=== PATIENT | male | born 1975 | race Caucasian/White ===

== ENCOUNTER 2019-06-10 09:48 | Emergency (ER) | payer OTHER ==
[~2019-06-10] VITALS: Ht 175.3 cm; Wt 85.4 kg
[2019-06-10] MEDS ORDERED: ONDANSETRON 2MG/ML, 2ML ONE (09:51)
[2019-06-10] MEDS ORDERED: SODIUM CHLORIDE FLUSH 10ML SYR IVF ONE (10:00)
[2019-06-10] MEDS ORDERED: MORPHINE SULFATE 4 MG/ML, 1ML IVPush PRN (10:00)
[2019-06-10] MEDS ORDERED: ONDANSETRON 2MG/ML, 2ML IVPush ONE (10:00)
[2019-06-10] MEDS ORDERED: synthroid PO (10:25)
--- NOTE | 2019-06-10 10:25 | NUR ---
pt came via [facility], from [facility], complaining of nausea since 7am, states vomited 3x this am. ems medicated with 4mg zofran, and 10mg morphine. pt triaged, r abd pain, denies palpating abd makes pain better or worse, denies flank pain. pt states still has nausea, medicated with ordered zofran. pt sitting in bed, officers at bedside, pt states pain but denies wanting medicine, informed that he can ask for ordered pain meds at any point, call light within reach, breathing even and unlabored, making jokes with officers. educated on clean catch urine, communicated understanding.
[2019-06-10 10:28] LABS: BASOPHILS # (AUTO) 0.03 x10^3/uL (0-0.1); BASOPHILS % (AUTO) 0 % (0-1); EOSINOPHILS # (AUTO) 0.02 x10^3/uL (0-0.4); EOSINOPHILS % (AUTO) 0 % (1-7); LYMPHOCYTES # (AUTO) 1.48 x10^3/uL (1-3.4); LYMPHOCYTES % (AUTO) 13 % (22-44); MD NO; MEAN CORPUSCULAR HEMOGLOBIN 29.7 pg (27.5-34.5); MEAN CORPUSCULAR HGB CONC 33.2 g/dL (33.2-36.2); MEAN CORPUSCULAR VOLUME 89.6 fL (81-97); MEAN PLATELET VOLUME 6.9 fL (7.4-10.4); MONOCYTES # (AUTO) 0.42 x10^3/uL (0.2-0.8); MONOCYTES % (AUTO) 4 % (2-9); NEUTROPHILS # (AUTO) 9.48 x10^3/uL (1.8-6.8); NEUTROPHILS % (AUTO) 83 % (42-75); PLATELET COUNT 337 x10^3/uL (130-400); RED BLOOD COUNT 5.22 x10^6/uL (4.38-5.82); RED CELL DISTRIBUTION WIDTH 13.7 % (9.4-14.8)
[2019-06-10 10:34] LABS: ALANINE AMINOTRANSFERASE 108 U/L (12-78); ALBUMIN 4.2 g/dL (3.4-5.0); ANION GAP 6 mmol/L (5-15); CALCIUM 8.9 mg/dL (8.5-10.1); CHLORIDE 111 mmol/L (98-107)
[2019-06-10 10:36] LABS: ALKALINE PHOSPHATASE 85 U/L (45-117); BILIRUBIN,TOTAL 0.4 mg/dL (0.2-1.0); TOTAL PROTEIN 7.9 g/dL (6.4-8.2)
--- NOTE | 2019-06-10 11:09 | NUR ---
pt to ct.
[2019-06-10] MEDS ORDERED: KETOROLAC 30 MG/1 ML IVPush ONE (12:00)
--- NOTE | 2019-06-10 12:02 | NUR ---
pt returned from ct, sitting in bed, conversing with officers. dr. araujo at bedside updating on plan of care.
[2019-06-10] MEDS ORDERED: KETOROLAC 30 MG/1 ML ONE (12:40)
--- NOTE | 2019-06-10 12:57 | NUR ---
pt medicated according to [facility], sitting in bed, joking with officers at bedside, educated to drink more water on a daily basis, will emphasize at discharge.
[2019-06-10 13:09] LABS: MICROSCOPIC AUTO
[2019-06-10 13:17] LABS: CULTURE INDICATED? NO
[2019-06-10 13:47] VITALS: BP 142/84
--- NOTE | 2019-06-10 13:47 | NUR ---
GIVEN DISCHARGE AND PROVIDED SNACKS.
== END 2019-06-10 13:50 | disposition home or self-care (01) ==
LOC: ED 09:54
DX: N13.2 Hydronephrosis with renal and ureteral calculous obstruction (principal); R94.31 Abnormal electrocardiogram [ECG] [EKG]
CPT/HCPCS: 36415; 74176; 80053; 81001; 83690; 85025; 93005; 96374; 96375; 99285; J1885; J2405